=== PATIENT | female | born 1945 | race Caucasian/White ===

== ENCOUNTER 2018-12-18 07:10 | Emergency (ER) | payer MEDICARE ==
[2018-12-18 07:27] VITALS: BP 131/77
[2018-12-18] MEDS: Aspirin 81 mg CHEW TAB* 81 MG TAB.CHEW PO ONE (07:50)
--- NOTE | 2018-12-18 07:55 | UC ---
General HPI - HPI Summary HPI Summary: Here with - states she has a remote history of vertigo. States this morning she woke up very dizzy, and felt like room was spinning. Went to lie down and felt worse. Got clammy and nauseated. Sat on edge of bed for a bit and decided to get checked out . States she tried vertigo exercises and seemed positional and worse when she did it on the right side. Has not had vertigo this intense like this in the past. Never clammy or nauseated. Also last few days she has had a H/A - thought maybe she was coming down with a sinus issue. No numbness or tingling or weakness. No confusion. Hx of a 'floppy valve'. Takes a baby aspirin. - History of Current Complaint Chief Complaint: UCDizziness Stated Complaint: DIZZY Time Seen by Provider: 12/18/18 07:38 Pain Intensity: 0 - Allergy/Home Medications Allergies/Adverse Reactions: Allergies Allergy/AdvReac Type Severity Reaction Status Date / Time bupropion Allergy Hives Verified 12/18/18 07:20 [From Wellbutrin SR] paraben Allergy Unknown Verified 12/18/18 07:20 Reaction Details NUCLEAR MED DYE Allergy Hives Uncoded 12/18/18 07:20 PMH/Surg Hx/FS Hx/Imm Hx Previously Healthy: Yes - Surgical History Surgical History: None - Social History Alcohol Use: Rare Substance Use Type: None Smoking Status (MU): Never Smoked Tobacco Review of Systems All Other Systems Reviewed And Are Negative: Yes Neurological: Positive: Headache Physical Exam Triage Information Reviewed: Yes Appearance: Well-Appearing Vital Signs: Initial Vital Signs Temp 97.0 F 12/18/18 07:21 Pulse 73 12/18/18 07:21 Resp 16 12/18/18 07:21 BP 131/77 12/18/18 07:21 Pulse Ox 99 12/18/18 07:21 Vital Signs Reviewed: Yes Eye Exam: Normal Eyes: Positive: Conjunctiva Clear ENT: Positive: Normal ENT inspection Neck: Positive: Supple, Nontender Respiratory: Positive: Lungs clear, Normal breath sounds Cardiovascular: Positive: RRR, Murmur:Sys:Grade _?_/ - 2 Neurological: Positive: Alert, Other: - upper and lower muscle strength equal and symmetric. Neg pronator drift and romberg test. 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 - Diagnoses Provider Diagnosis: Vertigo Discharge - Sign-Out/Discharge Documenting (check all that apply): Patient Departure All imaging exams completed and their final reports reviewed: No Studies - Discharge Plan Condition: Fair Disposition: HOME-RECOMMEND TO ED Referrals: Jessika Scruggs MD [Primary Care Provider] - Additional Instructions: Recommend going directly to [facility] ED for further work up of your vertigo - Billing Disposition and Condition Condition: FAIR Disposition: Home-Recommend to ED
== END 2018-12-18 07:55 | disposition home health service (06) ==
LOC: UCEAST 07:10
DX: R42 Dizziness and giddiness (principal); Z88.8 Allergy status to other drugs, medicaments and biological substances; Z91.041 Radiographic dye allergy status; Z91.09 Other allergy status, other than to drugs and biological substances
CPT/HCPCS: 99212; A9270-GY; G0463

== ENCOUNTER 2018-12-18 08:15 | Emergency (ER) | payer MEDICARE ==
[2018-12-18] MEDS ORDERED: Meclizine TAB* 12.5 MG PO ONE (08:47)
--- NOTE | 2018-12-18 08:49 | ED ---
Dizziness - HPI Summary HPI Summary: The patient is a 73 year old F presenting to [facility] accompanied by with a chief complaint of an episode of dizziness this morning. The pt woke up this morning, went to pee and looked out the window where things seemed to be moving. The pt went back to bed but when she rolled over the episode increased in severity and she reports diaphoresis and nausea. The pt reports going back to the bathroom where sitting up aided in reducing the severity of the episode. The pt then went back to bed but had another increase when she rolled over again. She used an instruction book that was given to her when she was diagnosed with vertigo where she used an exercise from the book to help end the episode. The longest episode was 5 minutes. The pt denies emesis, SOB, CP, and ear pain during the episode. She reports the exercise and rest are alleviating factors. Her symptoms were aggravated by radical movements per pt. The pt has a PMhx of Vertigo. The pt also reports having headaches and sinus congestion over the past couple days - History Of Current Complaint Chief Complaint: EDDizziness Stated Complaint: DIZZINESS PER PT Time Seen by Provider: 12/18/18 08:29 Hx Obtained From: Patient Onset/Duration: Resolved Timing: Intermittent Episode Lasting - 5 minutes Severity Initially: Mild Severity Currently: None Character: Dizzy - "looks like things were moving" Aggravating Factor(s): Position Change Alleviating Factor(s): Rest, Other - Head exercise Associated Signs And Symptoms: Positive: Nausea, Diaphoresis, Visual Changes, Other: - sinus congestion, headache. Negative: Vomiting, Chest Pain, SOB - Allergies/Home Medications Allergies/Adverse Reactions: Allergies Allergy/AdvReac Type Severity Reaction Status Date / Time bupropion Allergy Hives Verified 12/18/18 08:22 [From Wellbutrin SR] paraben Allergy Unknown Verified 12/18/18 08:22 Reaction Details NUCLEAR MED DYE Allergy Hives Uncoded 12/18/18 07:20 Home Medications: Home Medications C,E,Zinc,Copper 11/Tyidc6s/Lut [Eye Health Adult 50 Plus Sftgl] 1 each PO DAILY 12/18/18 [History Confirmed 12/18/18] PMH/Surg Hx/FS Hx/Imm Hx Previously Healthy: No Endocrine/Hematology History: Denies: Hx Diabetes Cardiovascular History: Denies: Hx Hypertension, Hx Pacemaker/ICD History: Denies: Hx Renal Disease Musculoskeletal History: Denies: Hx Rheumatoid Arthritis, Hx Osteoporosis Sensory History: Denies: Hx Hearing Aid Psychiatric History: Denies: Hx Panic Disorder - Cancer History Hx Chemotherapy: No Hx Radiation Therapy: No Infectious Disease History: No Infectious Disease History: Denies: Traveled Outside the [place] in Last 30 Days - Social History Alcohol Use: Rare Hx Substance Use: No Substance Use Type: Reports: None Hx Tobacco Use: No Smoking Status (MU): Never Smoked Tobacco Review of Systems Positive: Skin Diaphoresis, Other - dizziness Positive: Nasal Discharge Negative: Chest Pain Negative: Shortness Of Breath Positive: Nausea. Negative: Vomiting Positive: Headache All Other Systems Reviewed And Are Negative: Yes Physical Exam - Summary Physical Exam Summary: Constitutional: Well-developed, Well-nourished, Alert. (-) Distressed Skin: Warm, Dry HENT: Normocephalic; Atraumatic Eyes: Conjunctiva normal, [place] Hallpike test mildly positive Neck: Musculoskeletal ROM normal neck. (-) JVD, (-) Stridor, (-) Tracheal deviation Cardio: Rhythm regular, rate normal, Heart sounds normal; Intact distal pulses; The pedal pulses are 2+ and symmetric. Radial pulses are 2+ and symmetric. (-) Murmur Pulmonary/Chest wall: Effort normal. (-) Respiratory distress, (-) Wheezes, (-) Rales Abd: Soft, (-) tenderness, (-) Distension, (-) Guarding, (-) Rebound Musculoskeletal: (-) Edema Lymph: (-) Cervical adenopathy Neuro: Alert, Oriented x3 Psych: Mood and affect Normal Triage Information Reviewed: Yes Vital Signs On Initial Exam: Initial Vitals Temp Pulse Resp BP Pulse Ox 97 F 72 16 142/93 99 12/18/18 08:17 12/18/18 08:17 12/18/18 08:17 12/18/18 08:17 12/18/18 08:17 Vital Signs Reviewed: Yes Diagnostics - Vital Signs Vital Signs Temp Pulse Resp BP Pulse Ox 12/18/18 08:17 97 F 72 16 142/93 99 - Laboratory Result Diagrams: 12/18/18 08:58 12/18/18 08:58 Lab Statement: Any lab studies that have been ordered have been reviewed, and results considered in the medical decision making process. - CT Brain CT CT Interpretation Completed By: Radiologist Summary of CT Findings: NO ACUTE INTRACRANIAL PATHOLOGY. ED Physician has reviewed this report. - EKG 0902 Cardiac Rate: NL - 65 BPM EKG Rhythm: Sinus Rhythm ST Segment: Non-Specific Summary of EKG Findings: Normal sinus rhythm at 65 BPM bpm, normal MT, normal QRS, nonspecific QTc, L axis deviation, normal ST, normal T-waves, nonspecific EKG Re-Evaluation - Re-Evaluation First Eval Re-Evaluation Time: 08:04 Change: Improved Comment: Test results were shared with the pt. Dizzy Course/Dx - Course Course Of Treatment: The patient is a 73 year old F presenting to [facility] accompanied by with a chief complaint of an episode of dizziness this morning. Upon her physical exam the pt had a mildly positive [place] Hallpike test but the rest held no abnormal findings. The pt received an EKG which showed normal sinus rhythm at 65 BPM bpm, normal MT, normal QRS, nonspecific QTc, L axis deviation, normal ST, normal T-waves, nonspecific EKG. The pt also received a brain CT that found NO ACUTE INTRACRANIAL PATHOLOGY. The pt has abnormal WBC of 11.2 H, absolute neuts of 9.3 H, BUN/Creatinine ratio of 27.6 H , and glucose of 110 H. The pt will be discharged home with a Dx of vertigo and instructed to follow ou with her primary care pohysician and return to the ED for any new or worsening symptoms. - Diagnoses Provider Diagnoses: Vertigo Discharge - Sign-Out/Discharge Documenting (check all that apply): Patient Departure - discharge Patient Received Moderate/Deep Sedation with Procedure: No - Discharge Plan Condition: Good Disposition: HOME Prescriptions: Meclizine TAB* [Antivert 12.5 TAB*] 25 mg PO TID PRN #10 tab PRN Reason: Dizziness Patient Education Materials: Vertigo (ED) Print Language: HEBREW Referrals: Jessika Scruggs MD [Primary Care Provider] - - Billing Disposition and Condition Condition: GOOD Disposition: Home - Attestation Statements Document Initiated by Scribe: Yes Documenting Scribe: Dev Miller Provider For Whom Scribe is Documenting (Include Credential): Darcie Banks MD Scribe Attestation: Dev June, scribed for Darcie Bender MD on 12/18/18 at 1834. Scribe Documentation Reviewed: Yes Provider Attestation: The documentation as recorded by the scribe, Dev Miller accurately reflects the service I personally performed and the decisions made by me, Darcie Bender MD Status of Scribe Document: Viewed
[2018-12-18 09:09] LABS: ABS Basophils 0.1 10^3/ul (0-0.2); ABS Eosinophils 0.1 10^3/ul (0-0.6); ABS Lymphocytes 1.2 10^3/ul (1.0-4.8); ABS Monocytes 0.5 10^3/ul (0-0.8); ABS Neutrophils 9.3 10^3/ul (1.5-7.7); Eosinophil % 1.1 %; Hematocrit 42 % (35-47); Hemoglobin 13.9 g/dL (12.0-16.0); Lymphocyte % 10.8 %; Mean Corpuscular HGB Conc 33 g/dL (31-36); Mean Corpuscular Hemoglobin 29 pg (27-31); Mean Corpuscular Volume 86 fL (80-97); Mean Platelet Volume 8.5 fL (7.4-10.4); Platelet Count 286 10^3/uL (150-450); Red Blood Count 4.87 10^6 /uL (3.70-4.87); Red Cell Distribution Width 14 % (10.5-15); White Blood Count 11.2 10^3/uL (3.5-10.8)
[2018-12-18 09:14] LABS: INR 1.03 (0.82-1.09)
[2018-12-18 09:31] LABS: Albumin 4.2 g/dL (3.2-5.2); Albumin/Globulin Ratio 1.6 (1-3); BUN/Creatinine Ratio 27.6 (8-20); Calcium 9.7 mg/dL (8.6-10.3); EGFR African American 90.8 (>60); Globulin 2.7 g/dL (2-4); Potassium 4.6 mmol/L (3.5-5.0); Total Bilirubin 0.5 mg/dL (0.2-1.0); Total Protein 6.9 g/dL (6.4-8.9)
[2018-12-18 10:49] VITALS: BP 121/68
== END 2018-12-18 11:07 | disposition home or self-care (01) ==
LOC: ED 08:15
DX: R42 Dizziness and giddiness (principal); R11.0 Nausea; R61 Generalized hyperhidrosis; R51 Headache; R09.81 Nasal congestion; Z88.8 Allergy status to other drugs, medicaments and biological substances
CPT/HCPCS: 36415; 70450; 80053; 83605; 84484; 85025; 85610; 93005; 99283; A9270-GY

== ENCOUNTER 2020-12-31 11:51 | Observation (INO) ==
[~2020-12-31 11:51] MED LIST: Buffered Lidocaine 1% SYRIN 1 ml INTRADERM ONE; DiMENhydriNATE IV 50 mg/ml 1 ml VIAL IV PUSH ONE; DiMENhydriNATE IV 50 mg/ml 1 ml VIAL ONE; Famotidine IV 10 MG/ML 2 ml VIAL (20 mg) IV ONE; Famotidine IV 10 MG/ML 2 ml VIAL (20 mg) ONE; Lactated Ringers 1000 ml BAG 1,000 ML IV SCH; ceFAZolin 2 GM PREMIX 2 GM/50 ML BAG ONE
[2020-12-31] MEDS ORDERED: Ropivacaine 5 MG/ML 20 ML VIAL 0.5% (100 MG) ONE (13:21)
[2020-12-31] MEDS ORDERED: Prochlorperazine 5 mg/ml 2 ml VIAL (10 mg) IV PRN (13:27)
[2020-12-31] MEDS ORDERED: Morphine 4 MG/ML VIAL (1 ml) IV PRN (13:27)
[2020-12-31] MEDS ORDERED: Naloxone 0.4 mg VIAL 0.4 mg/ml 1 ml VIAL IV PRN (13:27)
[2020-12-31] MEDS ORDERED: fentaNYL 100 mcg/2 ml 50 MCG/ML VIAL IV PRN (13:27)
[2020-12-31] MEDS ORDERED: fentaNYL 100 mcg/2 ml 50 MCG/ML VIAL ONE (13:55)
[2020-12-31] MEDS ORDERED: Midazolam 2 mg/2 ml VIAL 1 mg/ml 2 ml VIAL (2 mg) ONE (13:55)
[2020-12-31] MEDS ORDERED: Lidocaine 2% PF 5 ML VIAL ONE (14:45)
[2020-12-31] MEDS ORDERED: Bupivacaine 0.5% SDV PF 30ML VIAL ONE (14:46)
[2020-12-31] MEDS ORDERED: Phenylephrine 40 mcg/mL 10mL (400mcg) SYRINGE ONE (15:06)
[2020-12-31] MEDS ORDERED: diPHENhydraMINE 25 mg TAB PO PRN (15:29)
[2020-12-31] MEDS ORDERED: diPHENhydraMINE IV 50 MG/ML 1 ml VIAL (BENADRYL) IV PRN (15:29)
[2020-12-31] MEDS ORDERED: Morphine 2 MG/ML SYRINGE IV PRN (15:29)
[2020-12-31] MEDS ORDERED: Magnesium Hydroxide LIQ 30 ML UDC PO PRN (15:29)
[2020-12-31] MEDS ORDERED: Ondansetron ODT 4 mg TAB 4 MG TAB PO PRN (15:29)
[2020-12-31] MEDS ORDERED: Lactulose 30 ml UDC PO PRN (15:29)
[2020-12-31] MEDS ORDERED: Ondansetron 4 mg VIAL 2 MG/ML 2 ml VIAL IV PRN (15:29)
[2020-12-31] MEDS ORDERED: oxyCODONE/Acetamin 5/325 mg TAB PO PRN (15:29)
[2020-12-31] MEDS: Lactated Ringers 1000 ml BAG 1,000 ML IV SCH (18:10)
[2020-12-31] MEDS: ceFAZolin 1 GM ADVAN 1 GM in NS 0.9% 50 ML 50 ML IVPB SCH (22:20)
[2020-12-31] MEDS: Magnesium Hydroxide LIQ 30 ML UDC PO SCH (22:21)
[2021-01-01 04:28] LABS: Hematocrit 31 % (35-47); Hemoglobin 10.6 g/dL (12.0-16.0); Mean Platelet Volume 8.2 fL (7.4-10.4); Platelet Count 251 10^3/uL (150-450)
[2021-01-01 04:47] LABS: Calcium 8.6 mg/dL (8.6-10.3); EGFR African American 81.5 (>60); EGFR Non-African American 67.4 (>60); Potassium 3.5 mmol/L (3.5-5.0)
[2021-01-01] MEDS: Lactated Ringers 1000 ml BAG 1,000 ML IV SCH (05:27)
[2021-01-01] MEDS: ceFAZolin 1 GM ADVAN 1 GM in NS 0.9% 50 ML 50 ML IVPB SCH ×2 (05:31→14:45)
[2021-01-01] MEDS: Magnesium Hydroxide LIQ 30 ML UDC PO SCH (08:51)
[2021-01-01] MEDS ORDERED: Vitamin THERAPEUTIC TAB PO SCH (09:00)
[2021-01-01] MEDS ORDERED: DESVENLAFAXINE 25 MG PO SCH (09:00)
[2021-01-01 12:25] VITALS: BP 110/54
== END 2021-01-01 16:06 | disposition home or self-care (01) ==
LOC: SSU 11:51 → OR 11:51
PROVIDERS: ADMIT Orthopaedic Surgery Adult Reconstructive Orthopaedic Surgery; ATTEND Orthopaedic Surgery Adult Reconstructive Orthopaedic Surgery

== ENCOUNTER 2021-12-06 05:32 | Observation (INO) ==
[2021-12-06] MEDS ORDERED: Lactated Ringers 1000 ml BAG 1,000 ML IV SCH (06:00)
[2021-12-06] MEDS ORDERED: Famotidine IV 10 MG/ML 2 ml VIAL (20 mg) IV ONE (06:00)
[2021-12-06] MEDS ORDERED: Buffered Lidocaine 1% SYRIN 1 ml INTRADERM ONE (06:00)
[2021-12-06] MEDS ORDERED: Famotidine IV 10 MG/ML 2 ml VIAL (20 mg) ONE (06:13)
[2021-12-06] MEDS ORDERED: ceFAZolin 2 GM in NS PREMIX 2 GM/100 ML BAG IVPB ONE (06:13)
[2021-12-06] MEDS ORDERED: Midazolam 2 mg/2 ml VIAL 1 mg/ml 2 ml VIAL (2 mg) ONE (07:13)
[2021-12-06] MEDS ORDERED: fentaNYL 250 mcg/5 ml 50 MCG/ML 5 ml VIAL (250 MCG) ONE (07:13)
[2021-12-06] MEDS ORDERED: Phenylephrine IV 10 MG/ML 1 ml VIAL ONE (07:23)
[2021-12-06] MEDS ORDERED: Ondansetron 4 mg VIAL 2 MG/ML 2 ml VIAL ONE (08:14)
[2021-12-06] MEDS ORDERED: Dexamethasone IV 4 MG/ML VIAL 1 ml VIAL ONE (08:14)
[2021-12-06] MEDS ORDERED: Ondansetron 4 mg VIAL 2 MG/ML 2 ml VIAL IV PRN ×2 (09:41→10:23)
[2021-12-06] MEDS ORDERED: fentaNYL 100 mcg/2 ml 50 MCG/ML VIAL IV PRN (09:41)
[2021-12-06] MEDS ORDERED: Magnesium Hydroxide LIQ 30 ML UDC PO PRN (10:23)
[2021-12-06] MEDS ORDERED: Morphine 2 MG/ML SYRINGE IV PRN (10:23)
[2021-12-06] MEDS ORDERED: Lactulose 30 ml UDC PO PRN (10:23)
[2021-12-06] MEDS ORDERED: Ondansetron ODT 4 mg TAB 4 MG TAB PO PRN (10:23)
[2021-12-06] MEDS: Lactated Ringers 1000 ml BAG 1,000 ML IV SCH ×2 (11:48→18:30)
[2021-12-06] MEDS: ceFAZolin 1 GM ADVAN 1 GM in NS 0.9% 50 ML 50 ML IVPB SCH (16:00)
[2021-12-06] MEDS ORDERED: NS 0.9% 1000 ml BAG 1,000 ML IV ONE (16:23)
[2021-12-06] MEDS: Magnesium Hydroxide LIQ 30 ML UDC PO SCH (22:24)
[2021-12-07] MEDS: ceFAZolin 1 GM ADVAN 1 GM in NS 0.9% 50 ML 50 ML IVPB SCH ×2 (00:46→07:58)
[2021-12-07 05:04] LABS: Hematocrit 28 % (35-47); Hemoglobin 9.7 g/dL (12.0-16.0); Mean Platelet Volume 8.5 fL (7.4-10.4); Platelet Count 234 10^3/uL (150-450)
[2021-12-07 05:23] LABS: Calcium 8.8 mg/dL (8.6-10.3); Potassium 3.6 mmol/L (3.5-5.0)
[2021-12-07] MEDS: Lactated Ringers 1000 ml BAG 1,000 ML IV SCH (06:31)
[2021-12-07] MEDS: Magnesium Hydroxide LIQ 30 ML UDC PO SCH (07:56)
[2021-12-07] MEDS ORDERED: DESVENLAFAXINE 25 MG PO SCH (09:00)
[2021-12-07] MEDS ORDERED: Aspirin EC 81 mg TAB.EC (enteric coated) PO SCH (09:00)
[2021-12-07] MEDS ORDERED: Vitamin THERAPEUTIC TAB PO SCH (09:00)
[2021-12-07 11:18] VITALS: BP 99/59
[2021-12-08] MEDS ORDERED: DESVENLAFAXINE 25 MG PO SCH (09:00)
== END 2021-12-07 12:40 | disposition home or self-care (01) ==
LOC: SSU 05:32 → OR 05:32 → SSU 23:54
PROVIDERS: ADMIT Orthopaedic Surgery Adult Reconstructive Orthopaedic Surgery; ATTEND Orthopaedic Surgery Adult Reconstructive Orthopaedic Surgery